=== PATIENT | female | born 2000 | race Caucasian/White ===

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

== ENCOUNTER → 2018-01-09 15:01 | Outpatient (CLI) | payer OTHER, MEDICAID, SELFPAY ==
--- NOTE | 2018-01-09 15:07 | DI.MRI.S_ITS ---
PROCEDURE: MR KNEE RT WO CON INDICATIONS: right knee pain s/p injury while lunging with swelling. Posterior and medial pain TECHNIQUE: Noncontrast sagittal PD fast spin echo and T2 fast spin echo with fat saturation, sagittal 3-D FLASH with fat saturation; coronal T1 spin echo and PD fast spin echo with fat saturation, and axial PD fast spin echo with fat saturation through the knee. COMPARISON: None. FINDINGS: Image quality: Excellent. Menisci: Mild amorphous high T2 signal intensity within the posterior horn medial meniscus is present, without definite articular surface extension. The medial and lateral menisci demonstrate otherwise normal morphology and internal signal. The meniscal root ligaments appear intact. Cruciate ligaments: The anterior and posterior cruciate ligaments appear intact. Medial structures: The medial collateral ligament appears intact. Visualized portions of the pes anserinus tendons appear normal. No abnormal bursal fluid. Lateral structures: The lateral collateral ligament, long and short heads of the biceps femoris tendon appear intact. The popliteus tendon appears normal. Iliotibial band appears normal. Anterior structures: The quadriceps and patellar tendons appear intact. There is mild lateral patellar subluxation. There is high T2 signal intensity within and surrounding the medial patellofemoral ligament. No femoral trochlear dysplasia or ventral trochlear prominence. No edema in the infrapatellar fat pad. Bones and cartilage: No displaced fracture. There is moderate ill-defined T2 signal elevation within the lateral femoral condyle anteriorly and posteriorly. There is moderate ill-defined T2 signal elevation within the inferomedial patella. Full-thickness articular cartilage defect overlies the patellar apex. Joint space: There is a small knee joint effusion. No Marie's cyst. Normal appearing synovial plicae are incidentally noted. IMPRESSION: 1. Findings consistent with sequelae of recent transient lateral patellar dislocation, with kissing contusions in the medial patella and lateral femoral condyle. No displaced fracture. There is an associated articular cartilage defect overlying the patellar apex. Small knee joint effusion. 2. No evidence of meniscal tear nor cruciate ligament tear. Dictated by: Temi Palomo M.D. on 01/09/2018 at 16:17 Approved by: Temi Palomo M.D. on 01/09/2018 at 16:21
== END ==
PROVIDERS: PCP Family Medicine; Visit Provider Family Medicine
DX: S80.02XA Contusion of left knee, initial encounter (principal); M25.561 Pain in right knee; M25.461 Effusion, right knee
CPT/HCPCS: 73721

== ENCOUNTER 2018-02-26 12:32 | Emergency (ER) | payer OTHER, MEDICAID, SELFPAY ==
[2018-02-26 12:59] VITALS: BP 109/73; PULSE 93; RESP 20; TEMP 36.6; O2SAT 99
--- NOTE | 2018-02-26 13:38 | ED.ANXIETY ---
HPI - Anxiety General Chief Complaint: Anxiety Stated Complaint: states panic attack, chest hurts Time Seen by Provider: 02/26/18 13:37 Source: patient Mode of arrival: ambulatory Limitations: no limitations History of Present Illness HPI narrative: This 17-year-old female who has a long history of anxiety and panic attacks comes in today due to recurrent panic attack to. She states that she has had more anxiety recently, felt on edge, foggy, and harder to process and focus. She has intermittent brief chest pains that are typical for her when she gets very anxious. She states that she occasionally takes clonazepam for severe anxiety, not more than a few times per month. She ran out of this a couple of days ago, called her psychiatrist to request a refill, but is a bit late for her follow-up, and states psychiatrist would not refill her medications until she can be seen at the end of the month. She states that this in turn made her more anxious and she was unable to sleep at all last night due to tension, which made her feel worse. She states that she has been on 40 mg of Prozac, tried more in the past but she felt worse on that. She does have times where she is ?super focused?. Symptoms tend to wax and wane. She states that currently, she is feeling better. Not having any chest pain, dyspnea, shakes or other new symptoms now aside from some ongoing bilateral earache which she thinks is due to tension in her jaw muscles. She has not been ill with upper respiratory symptoms or fever. She denies any possibility of Related Data Previous Rx's Medication Instructions Recorded clonazepam 0.5 mg tablet 0.5 mg PO PRN PRN #5 08/28/17 clonazepam 0.5 mg PO .qd PRN #3 tab 02/26/18 fluoxetine 20 mg capsule 40 mg PO DAILY #60 cap 02/26/18 Allergies Allergy/AdvReac Type Severity Reaction Status Date / Time No Known Drug Allergies Allergy Verified 02/23/18 13:24 Review of Systems Review of Systems All systems reviewed & are unremarkable except as noted in HPI and below PFSH Medical History Anxiety (Chronic) Panic attacks (Chronic) Social History Smoking Status: Never smoker Exam Narrative Exam Narrative: GENERAL APPEARANCE: Patient sitting comfortably, in no distress. HEAD: No sinus TTP. EYES: PERRL, EOMI. EARS: Normal auditory canals, TMS intact with normal light reflexes. ORAL CAVITY: Normal oropharynx. THROAT: Clear. NECK/THYROID: Neck supple, full range of motion, no cervical lymphadenopathy. LUNGS: Clear to auscultation bilaterally, no cough on exam. HEART: RRR without murmur, nl S1, S2, no S3 or S4. Initial Vital Signs Initial Vital Signs: Vital Signs Temperature 97.9 F 02/26/18 12:59 Pulse Rate 93 H 02/26/18 12:59 Respiratory Rate 20 02/26/18 12:59 Blood Pressure 109/73 02/26/18 12:59 Pulse Oximetry 99 02/26/18 12:59 Course Additional Information: The patient is not currently having chest pain or other panic attack symptoms, has had persistent anxiety recently. I did prescribe a few clonazepam for her to have on hand since she has taken this occasionally for some time without complications. Her mom is here with her who has similar symptoms and well known to me from my previous practice. Advised to follow up with her psychiatrist, and discussed possibility of other contributors such as soft bipolar disorder given the mood changes that she describes and some history of worsening with SSRIs. She is agreeable and will return if any acute changes Vital Signs - 8 hr 02/26/18 12:59 Temperature 97.9 F Pulse Rate 93 H Respiratory Rate 20 Blood Pressure 109/73 Pulse Oximetry 99 MDM - Anxiety ECG Data Attestation: I personally reviewed and interpreted this ECG as follows: (Normal sinus rhythm with rate 73, normal axis) Discharge Plan Departure Patient Disposition: Home Clinical Impression: Panic attacks Discharge Date/Time: 02/26/18 14:14 Interventions: ED Discharge Assessment Last Done: 02/26/18 14:13 Instructions: Anxiety and Panic Attacks (Alternative Therapy), DI for Anxiety -- Adult Activity Restrictions/Additional Instructions: Please return if you have new or acutely worsening symptoms as we talked about, otherwise I have written a prescription for a few clonazepam for you to have on hand until you can follow up with your PCP or psychiatrist. Please make sure you get refills before you run out of that in the future, as that should help in providing the panic attacks. The since you have had the times where you have more focused and increased anxiety, and other times where you feel foggy, please also discussed with them whether you need to make any changes in your Prozac, or whether there may be other problems that contribute to your anxiety that could be treated. Prescriptions: New clonazepam 0.5 mg tablet 0.5 mg PO .qd PRN (Reason: anxiety/panic attack) Qty: 3 RF: 0 No Action clonazepam 0.5 mg tablet 0.5 mg PO PRN PRN (Reason: anxiety) Qty: 5 RF: 0 fluoxetine 20 mg capsule 40 mg PO DAILY Qty: 60 RF: 0 Referrals: Stella Wilson [Other] Lisset Herrera MD [Primary Care Provider] -
== END 2018-02-26 14:14 | disposition home or self-care (01) ==
PROVIDERS: Emergency Provider Internal Medicine; PCP Family Medicine
DX: F41.0 Panic disorder [episodic paroxysmal anxiety] (principal); R07.89 Other chest pain
CPT/HCPCS: 93005; 99282; 99283

== ENCOUNTER 2018-04-12 15:31 | Emergency (ER) | payer OTHER, MEDICAID, SELFPAY ==
[2018-04-12 15:34] VITALS: BMI 28.8
[2018-04-12 15:36] VITALS: BP 128/77; PULSE 93; RESP 16; O2SAT 98; BMI 28.8
--- NOTE | 2018-04-12 16:05 | PC.NURSE ---
inserted soft nasal packing to right nostril and reapplied nasal clamp.
== END 2018-04-12 16:46 | disposition left against medical advice (07) ==
PROVIDERS: PCP Family Medicine
DX: R04.0 Epistaxis (principal)
CPT/HCPCS: 99281

== ENCOUNTER 2018-04-13 21:25 | Emergency (ER) | payer OTHER, MEDICAID, SELFPAY ==
[2018-04-13 21:33] VITALS: BP 122/70; PULSE 102; RESP 18; TEMP 36.8; O2SAT 99; BMI 28.8
--- NOTE | 2018-04-13 22:06 | ED_ITS ---
HPI - Epistaxis General Chief complaint: Nasal Problem Stated complaint: bloody nose Time Seen by Provider: 04/13/18 21:39 Source: patient Mode of arrival: ambulatory Limitations: no limitations History of Present Illness HPI Narrative: 17-year-old female here for evaluation of a nose bleed. She also states that for the past several weeks she has become very ?lightheaded. She does bruise easily. No trauma to her nose. Does have heavy menstrual cycles. Feels like her head is full water and becoming lightheaded. She also states that she became nauseous after the nosebleed. Coughed up some ?clots? Related Data Previous Rx's Medication Instructions Recorded clonazepam 0.5 mg tablet 0.5 mg PO DAILY PRN #10 tab 04/02/18 fluoxetine 20 mg capsule 40 mg PO DAILY #60 cap 04/02/18 Allergies Allergy/AdvReac Type Severity Reaction Status Date / Time No Known Drug Allergies Allergy Verified 04/12/18 15:34 Review of Systems Constitutional Denies fever(s) and Denies headache(s) ENT Ears, Nose, Mouth, and Throat: Denies dental pain, Denies vertigo, Reports dizziness, Denies facial pain, Denies headache(s), Reports epistaxis, Denies mouth lesions, Denies neck mass, Reports sinus pain, Reports sinus pressure, Denies sore throat, Denies throat swelling and Denies tongue swelling Cardiovascular Denies chest pain and Denies dyspnea Respiratory Denies dyspnea Gastrointestinal Gastrointestinal: Denies abdominal pain, Denies nausea and Denies vomiting Genitourinary Denies vaginal discharge Comments: Heavy menstrual cycles Musculoskeletal Denies myalgias and Denies arthralgias Integumentary/Breasts Denies lesions and Denies rash Neurologic Denies vertigo, Reports dizziness and Denies headache(s) Hematologic/Lymphatic Denies easy bleeding and Reports easy bruising Allergic/Immunologic Denies throat swelling and Denies tongue swelling PFSH Medical History Anxiety (Chronic) Panic attacks (Chronic) Social History Smoking Status: Never smoker alcohol intake: never substance use type: does not use Exam Initial Vital Signs Initial Vital Signs: Vital Signs Temperature 98.3 F 04/13/18 21:33 Pulse Rate 102 H 04/13/18 21:33 Respiratory Rate 18 04/13/18 21:33 Blood Pressure 122/70 04/13/18 21:33 Pulse Oximetry 99 04/13/18 21:33 Const General: cooperative, healthy appearing, comfortable, well developed, well groomed and No acute distress Orientation: alert, awake and oriented x3 HENMT Head: normal to inspection Ears: other (Bilateral tympanic membranes bulging without erythema) Nose: other (Red area in the right anterior nasal septum. No septal hematoma.) Resp Effort & Inspection: normal respiratory effort Cardio Rate: regular rate Rhythm: regular rhythm GI Inspection: non-distended Palpation: soft, No firm and No tender Skin Lesions: no lesions Rashes: no rashes Neuro General: alert, awake and oriented x3 Extrem General: normal to inspection and capillary refill normal Psych Appearance: grossly normal and well kempt Course Orders Ordered: ED Orders 04/13/18 22:18 Complete Blood Count AUTO DIFF Stat Vital Signs - 8 hr 04/13/18 21:33 Temperature 98.3 F Pulse Rate 102 H Respiratory Rate 18 Blood Pressure 122/70 Pulse Oximetry 99 MDM - Epistaxis Lab Data Attestation: I reviewed the patient's lab results. Result diagrams: 04/13/18 22:18 Lab Results 04/13/18 Range/Units 22:18 WBC 8.6 (4.5-11.0) X10^3/uL RBC 4.53 (4.0-5.2) X10^6/uL Hgb 13.6 (12.0-16.0) g/dL Hct 40.4 (36-46) % MCV 89.3 (80-100) fL MCH 30.1 (26-34) PG MCHC 33.7 (30-36) % RDW 12.3 (11.6-14.8) % Plt Count 274 (150-400) X10^3/uL Neut % (Auto) 58.7 (50-75) % Lymph % (Auto) 30.1 (25-40) % [place] % (Auto) 7.9 (3-14) % Eos % (Auto) 2.5 (2-4) % Baso % (Auto) 0.8 (0-2) % Neut # (Auto) 5100 (2479-5406) /uL MDM Narrative Medical decision making narrative: No active bleeding. Platelets unremarkable. Not anemic. Does have signs of upper respiratory infection. We did discuss decongestants. We discussed things that she can do at home for if her nosebleed returns. We discussed return precautions. She expressed understanding and agreement with plan. Discharge Plan Departure Patient Disposition: Home Clinical Impression: Epistaxis, Nasal sinus congestion Instructions: Nosebleeds (Alternative Therapy), DI for Nosebleed, DI for Nasal Congestion Activity Restrictions/Additional Instructions: Recommend that you take a decongestant such as Claritin like we discussed. He could also use the Vaseline around the outside of her nose like we discussed. Return to the emergency department for any new or worsening symptoms Prescriptions: No Action fluoxetine 20 mg capsule 40 mg PO DAILY Qty: 60 RF: 0 clonazepam 0.5 mg tablet 0.5 mg PO DAILY PRN (Reason: anxiety/panic attack) Qty: 10 RF: 0
--- NOTE | 2018-04-13 22:10 | PC.NURSE ---
R nasal turbinate edematous. No active nose bleeding noted. c/o congestion in ears, R>L, with nasal congestion
[2018-04-13 22:27] LABS: Add Manual Diff / Slide Review NO; Basophils Percent Auto 0.8 % (0-2); Eosinophils Percent Auto 2.5 % (2-4); Hematocrit 40.4 % (36-46); Hemoglobin 13.6 g/dL (12.0-16.0); Lymphocytes Percent Auto 30.1 % (25-40); Mean Corpuscular HGB Conc 33.7 % (30-36); Mean Corpuscular Hemoglobin 30.1 PG (26-34); Mean Corpuscular Volume 89.3 fL (80-100); Monocytes Percent Auto 7.9 % (3-14); Neutrophils Absolute Auto 5100 /uL (1500-7000); Neutrophils Percent Auto 58.7 % (50-75); Platelet Count 274 X10^3/uL (150-400); Red Blood Cell Count 4.53 X10^6/uL (4.0-5.2); Red Cell Distribution Width 12.3 % (11.6-14.8); White Blood Cell Count 8.6 X10^3/uL (4.5-11.0)
[2018-04-13 23:09] VITALS: BP 106/71; PULSE 89; RESP 18; O2SAT 100
== END 2018-04-13 23:00 | disposition home or self-care (01) ==
PROVIDERS: Emergency Provider Emergency Medicine; PCP Family Medicine
DX: R04.0 Epistaxis (principal); R09.81 Nasal congestion
CPT/HCPCS: 36415; 85025; 99282; 99283

== ENCOUNTER 2018-05-04 11:44 | Emergency (ER) | payer OTHER, MEDICAID, SELFPAY ==
[2018-05-04 11:45] VITALS: BP 119/65; PULSE 79; RESP 20; TEMP 37; O2SAT 100
--- NOTE | 2018-05-04 12:04 | PC.NURSE ---
Assumed care of pt at bed 11, pt c/o jolting discomfort in the chest, feeling racing heart which wakes her up from sleep with dyspnea, dizziness. She has hx of anxiety and takes Prozac and Clonazepam PRN and it feels different. She is somewhat able to recreate the jolting discomfort by press on the chest. Patient reports not feeling well yesterday way with feeling weak, dizziness, sob.
--- NOTE | 2018-05-04 12:07 | ED_ITS ---
HPI - Chest Pain <Rose Millard PA-C - Last Filed: 05/04/18 12:57> General Chief Complaint: Chest Pain Stated Complaint: Chest pain/anxiety Time Seen by Provider: 05/04/18 12:05 Source: patient Mode of arrival: ambulatory Limitations: no limitations History of Present Illness HPI narrative: This 18-year-old female comes in due to chest pressure and discomfort. She states that she awoke at 4:00 a.m. with this, noticed it was worse with arm and neck movement. She states that this was brief. She states that she was able to fall back asleep, but awoke a couple more times with similar symptoms and has had intermittently throughout the day. She describes this as chest pressure in the left side, it is freeze, alleviated with position change. She saw her chiropractor and had adjustment done but no change. She describes some minimal air hunger with symptoms, but denies any ysabel dyspnea, no wheeze. She denies any nausea or vomiting. She denies any lightheadedness. She has not had any cough or fever recently. No pain or swelling in her legs. She states that she has chronic neck and back tightness strain for which she sees chiropractor and sometimes PT and notes that she tends to sleep with her left arm up. She denies any new exercises or trauma. She states that she has had more reflux and belching recently. Related Data Home Medications Medication Instructions Recorded Confirmed clonazepam 0.5 mg PO BID PRN 05/04/18 05/04/18 Previous Rx's Medication Instructions Recorded fluoxetine 20 mg capsule 40 mg PO DAILY #60 cap 05/04/18 meloxicam 15 mg PO DAILY #14 tab 05/04/18 ranitidine HCl 300 mg PO DAILY #20 tab 05/04/18 Allergies Allergy/AdvReac Type Severity Reaction Status Date / Time No Known Drug Allergies Allergy Verified 04/12/18 15:34 Review of Systems <LISA Calix Last Filed: 05/04/18 12:57> Review of Systems ROS Unobtainable: All systems reviewed & are unremarkable except as noted in HPI and below Exam <LISA Calix Last Filed: 05/04/18 12:57> Initial Vital Signs Initial Vital Signs: Vital Signs Temperature 98.6 F 05/04/18 11:45 Pulse Rate 79 05/04/18 11:45 Respiratory Rate 20 05/04/18 11:45 Blood Pressure 119/65 05/04/18 11:45 Pulse Oximetry 100 05/04/18 11:45 GENERAL APPEARANCE: Patient sitting comfortably, in no distress. NECK/THYROID: Neck supple LUNGS: Clear to auscultation bilaterally. CHEST: Tender the over the left inferior ribs mainly 9/10 at the sternal border , otherwise mildly tender over the mid to inferior anterior ribs HEART: Regular rate and rhythm without murmur, normal S1, S2, no S3 or S4. ABDOMEN: Soft, NT, ND, + BS x 4 quadrants EXTREMITIES: No cyanosis. No calf tenderness NEUROLOGIC: Alert and oriented, normal speech, gait and coordination. DERMATOLOGIC: No exanthem MUSCULOSKELETAL: No point tenderness over the cervical or thoracic spine, mild generalized tenderness over the cervical and thoracic musculature. Full range of motion of the neck and extremities. Chest tenderness is elicited briefly on exam and resolves with position change <DO Mikael Maya Last Filed: 05/05/18 07:45> Initial Vital Signs Initial Vital Signs: Vital Signs Temperature 98.6 F 05/04/18 11:45 Pulse Rate 79 05/04/18 11:45 Respiratory Rate 20 05/04/18 11:45 Blood Pressure 119/65 05/04/18 11:45 Pulse Oximetry 100 05/04/18 11:45 Course <Rose Millard PA-C - Last Filed: 05/04/18 12:57> Orders Ordered: ED Orders 05/04/18 11:54 EKG-12 Lead Stat Vital Signs - 8 hr 05/04/18 11:45 05/04/18 12:37 Temperature 98.6 F Pulse Rate 79 87 Respiratory Rate 20 20 Blood Pressure 119/65 Blood Pressure [Right Arm] 107/59 L Pulse Oximetry 100 99 <DO Mikael Maya Last Filed: 05/05/18 07:45> Orders Ordered: ED Orders 05/04/18 11:54 EKG-12 Lead Stat Vital Signs - 8 hr 05/04/18 11:45 05/04/18 12:37 Temperature 98.6 F Pulse Rate 79 87 Respiratory Rate 20 20 Blood Pressure 119/65 Blood Pressure [Right Arm] 107/59 L Pulse Oximetry 100 99 MDM - Chest Pain <Rose Millard PA-C - Last Filed: 05/04/18 12:57> ECG Data Attestation: I personally reviewed and interpreted this ECG as follows: (NSR, rate 84, normal axis, no acute changes) Prior ECG tracings: available for review <Hilary Martinez DO - Last Filed: 05/05/18 07:45> ECG Data Attestation: I personally reviewed and interpreted this ECG as follows: Prior ECG tracings: available for review Interpretation: Normal sinus rhythm rate [address] changes SD interval 164 no T- wave inversions similar to previous EKG Discharge Plan Departure Patient Disposition: Home Clinical Impression: Atypical chest pain, Chondrocostal junction syndrome Discharge Date/Time: 05/04/18 13:01 Interventions: ED Discharge Assessment Last Done: 05/04/18 13:01 Instructions: DI for Costochondritis Activity Restrictions/Additional Instructions: You appear to have pain where the left lower ribs and breast bone connect. I have prescribed a once daily anti-inflammatory/pain medicine for you that may upset your stomach less than ibuprofen and help your pain. Please start this today. I also prescribed an acid civil engineer land development medicine (prescription strength Zantac ). Please start this once daily as well so that you can review your progress with your PCP when you follow-up next week. Discussed whether it may be helpful to start physical therapy for your rib pain if it continues. Return as we talked about if you have new or acutely worsening or new symptoms that you are concerned about in the interim. Prescriptions: New ranitidine HCl 300 mg tablet 300 mg PO DAILY Qty: 20 RF: 0 meloxicam 15 mg tablet 15 mg PO DAILY Qty: 14 RF: 0 No Action fluoxetine 20 mg capsule 40 mg PO DAILY Qty: 60 RF: 0 clonazepam 0.5 mg tablet 0.5 mg PO BID PRN (Reason: Anxiety) RF: 0 Referrals: Lisset Herrera MD [Primary Care Provider] - <Hilary Martinez DO - Last Filed: 05/05/18 07:45> Cosign ED Attending Karissa Attestation: I was immediately available in the department for consultation. Documentation has been reviewed. I agree with assessment and plan.
[2018-05-04 12:37] VITALS: BP 107/59; PULSE 87; RESP 20; O2SAT 99
== END 2018-05-04 13:01 | disposition home or self-care (01) ==
PROVIDERS: Emergency Provider Internal Medicine; PCP Family Medicine
DX: R07.89 Other chest pain (principal); M94.0 Chondrocostal junction syndrome [Tietze]
CPT/HCPCS: 93005; 93010; 93041; 99283

== ENCOUNTER → 2018-05-09 16:00 | Outpatient (CLI) | payer OTHER, MEDICAID, SELFPAY ==
[2018-05-09 16:20] LABS: Add Manual Diff / Slide Review NO; Basophils Absolute Auto 0 /uL (0-100); Basophils Percent Auto 0.6 % (0-2); Eosinophils Absolute Auto 200 /uL (0-450); Eosinophils Percent Auto 3.2 % (2-4); Hematocrit 41.4 % (36-46); Lymphocytes Absolute Auto 1900 /uL (1100-4500); Mean Corpuscular HGB Conc 33.7 % (30-36); Mean Corpuscular Hemoglobin 30.2 PG (26-34); Mean Corpuscular Volume 89.7 fL (80-100); Monocytes Absolute Auto 400 /uL (0-900); Monocytes Percent Auto 4.8 % (3-14); Neutrophils Absolute Auto 5000 /uL (1500-7000); Neutrophils Percent Auto 66.4 % (50-75); Platelet Count 243 X10^3/uL (150-400); Red Blood Cell Count 4.62 X10^6/uL (4.0-5.2); Red Cell Distribution Width 12.3 % (11.6-14.8); White Blood Cell Count 7.6 X10^3/uL (4.5-11.0)
[2018-05-09 16:58] LABS: Vitamin D 25 Hydroxy (D3) 29.2 ng/mL (30.0-100.0)
[2018-05-09 17:08] LABS: TSH w/ Reflex to FT4 1.02 uIU/mL (0.47-4.68)
== END ==
PROVIDERS: PCP Family Medicine; Visit Provider Family Medicine
DX: R53.83 Other fatigue (principal)
CPT/HCPCS: 36415; 82306; 84443; 85025

== ENCOUNTER → 2018-06-20 15:56 | Outpatient (CLI) | payer OTHER, MEDICAID, SELFPAY | PROVIDERS: PCP Family Medicine; Visit Provider Family Medicine | DX: N89.8 Other specified noninflammatory disorders of vagina (principal) | CPT/HCPCS: 87070; 87205 ==

== ENCOUNTER → 2018-08-08 19:07 | Outpatient (CLI) | payer OTHER, MEDICAID, SELFPAY ==
[2018-08-08 19:34] LABS: Monotest Positive (Negative)
== END ==
PROVIDERS: PCP Family Medicine; Visit Provider Physician Assistant
DX: J02.9 Acute pharyngitis, unspecified (principal); R53.83 Other fatigue
CPT/HCPCS: 86318; 87070

== ENCOUNTER 2018-10-22 23:32 | Emergency (ER) | payer OTHER, MEDICAID, SELFPAY ==
[2018-10-22 23:39] VITALS: BP 121/73; PULSE 104; RESP 18; TEMP 36.8; O2SAT 98; BMI 29.7
--- NOTE | 2018-10-22 23:42 | ED_ITS ---
HPI - General Adult General Chief complaint: Arrhythmia/Palpitations Stated complaint: RACING HEART TIGHTNESS IN CHEST Time Seen by Provider: 10/22/18 23:40 Source: patient Mode of arrival: ambulatory Limitations: no limitations History of Present Illness HPI narrative: Patient is a 18-year-old female. She states she has a history of anxiety but this felt somewhat different than her prior anxiety issues. States she has been having palpitations and tightness in her chest and palpitations up into her neck. She states she was having the symptoms of the time my evaluation. Did not take her anxiety medicines prior to coming in Related Data Previous Rx's Medication Instructions Recorded clonazepam 0.5 mg tablet 0.5 mg PO DAILY PRN #30 tab 09/25/18 sertraline 100 mg tablet 100 mg PO DAILY #30 tab 10/22/18 Allergies Allergy/AdvReac Type Severity Reaction Status Date / Time No Known Drug Allergies Allergy Verified 10/22/18 09:14 Review of Systems Constitutional Denies fever(s) and Denies headache(s) ENT Ears, Nose, Mouth, and Throat: Denies headache(s) Cardiovascular Denies chest pain, Reports rapid heart rate, Reports palpitations and Denies dyspnea Respiratory Denies cough and Denies dyspnea Gastrointestinal Gastrointestinal: Denies abdominal pain Genitourinary Denies dysuria Musculoskeletal Denies myalgias and Denies arthralgias Integumentary/Breasts Denies rash Neurologic Denies behavioral changes and Denies headache(s) Psychiatric Denies behavioral changes Comments: Anxiety Endocrine Reports palpitations Hematologic/Lymphatic Denies easy bruising [facility] Medical History Anxiety (Chronic) Chronic neck and back pain (Chronic) Panic attacks (Chronic) Surgical History (Updated 05/04/18 @ 12:06 by Rose Millard PA-C) No pertinent past surgical history (Chronic) Family History (Updated 05/04/18 @ 12:06 by Rose Millard PA-C) Other Family history non-contributory Social History Smoking Status: Never smoker alcohol intake: never substance use type: does not use Social History Smoking Status: Never smoker alcohol intake: never substance use type: does not use Exam Initial Vital Signs Initial Vital Signs: Vital Signs Temperature 98.2 F 10/22/18 23:39 Pulse Rate 104 H 10/22/18 23:39 Respiratory Rate 18 10/22/18 23:39 Blood Pressure 121/73 10/22/18 23:39 Pulse Oximetry 98 10/22/18 23:39 Const General: cooperative, well developed, well groomed and No acute distress Orientation: alert, awake and oriented x3 HENMT Head: normal to inspection and normocephalic Resp Effort & Inspection: normal respiratory effort Auscultation: clear to auscultation bilaterally Cardio Rate: regular rate Rhythm: regular rhythm Pulses: radial pulses present GI Inspection: non-distended Palpation: soft Skin Lesions: no lesions Rashes: no rashes Neuro General: alert and awake Cognition: normal cognition Speech: speech normal Motor: muscle tone normal throughout Extrem General: normal to inspection and capillary refill normal Psych Appearance: grossly normal and well kempt Course Orders Ordered: ED Orders 10/22/18 23:41 EKG-12 Lead Stat Discontinued Medications Lorazepam (Ativan) 1 mg PO NOW ONE Stop: 10/22/18 23:55 Last Admin: 10/23/18 00:01 Dose: 1 mg Vital Signs - 8 hr 10/22/18 23:39 10/23/18 00:21 Temperature 98.2 F Pulse Rate 104 H 97 H Respiratory Rate 18 18 Blood Pressure 121/73 Blood Pressure [Right Arm] 111/70 Pulse Oximetry 98 98 Medical Decision Making ECG Data Attestation: I personally reviewed and interpreted this ECG as follows: Prior ECG tracings: not available for review Interpretation: Sinus rhythm Ventricular rate of 94 First degree AV block as needed oval 2-4 milliseconds Normal QRS Normal QTC No ST T wave changes MDM Narrative Medical decision making narrative: Patient was having symptoms the time my evaluation where her heart rate was sinus rhythm. Give her Ativan here in the emergency department she does state that this helped her symptoms somewhat. I suspect that the symptoms were caused by anxiety. She was given return precautions and follow-up instructions. She expressed understanding and agreement plan. Discharge Plan Departure Patient Disposition: Home Clinical Impression: Palpitations, Anxiety Discharge Date/Time: 10/23/18 00:30 Interventions: ED Discharge Assessment Last Done: 10/23/18 00:29 Instructions: DI for Palpitations Activity Restrictions/Additional Instructions: Continue all of your medications as directed. Return to the emergency department for any new or worsening symptoms. Contact your primary care provider for a follow-up. Prescriptions: No Action sertraline 100 mg tablet 100 mg PO DAILY Qty: 30 RF: 2 clonazepam 0.5 mg tablet 0.5 mg PO DAILY PRN (Reason: Anxiety) Qty: 30 RF: 0 Referrals: Lisset Herrera MD [Primary Care Provider] -
[2018-10-23] MEDS: LORazepam 1 MG TABLET PO (00:01)
[2018-10-23 00:21] VITALS: BP 111/70; PULSE 97; RESP 18; O2SAT 98
== END 2018-10-23 00:30 | disposition home or self-care (01) ==
PROVIDERS: Emergency Provider Emergency Medicine; PCP Family Medicine
DX: R00.2 Palpitations (principal); F41.9 Anxiety disorder, unspecified
CPT/HCPCS: 93005; 93010; 99282; 99283

== ENCOUNTER → 2019-06-07 12:03 | Outpatient (ROUT) | payer OTHER, MEDICAID, SELFPAY | PROVIDERS: PCP Family Medicine; Visit Provider Obstetrics & Gynecology | DX: N94.89 Other specified conditions associated with female genital organs and menstrual cycle (principal) | CPT/HCPCS: 87480; 87510; 87660 ==

== ENCOUNTER → 2019-11-22 13:43 | Outpatient (CLI) | payer OTHER, MEDICAID, SELFPAY ==
[2019-11-24 04:11] LABS: COVID19 Sendout Not Detected (Not Detected)
== END ==
PROVIDERS: PCP Family Medicine; Visit Provider Physician Assistant
DX: R05 Cough (principal); J02.9 Acute pharyngitis, unspecified; Z11.59 Encounter for screening for other viral diseases
CPT/HCPCS: 87070; 87635

== ENCOUNTER 2019-12-29 16:36 | Emergency (ER) | payer OTHER, MEDICAID, SELFPAY ==
[2019-12-29 16:40] VITALS: BP 124/66; PULSE 127; RESP 18; TEMP 37; O2SAT 99; BMI 31.3
--- NOTE | 2019-12-29 17:12 | ED.SYNCOPE ---
HPI - Syncope General Chief Complaint: Syncope Stated Complaint: Dizzy/Fell outside/loss of memory Time Seen by Provider: 12/29/19 17:00 Source: patient Mode of arrival: Ambulatory Limitations: no limitations History of Present Illness HPI narrative: Patient is a 19-year-old female who presents after syncopal episode. She said she was face timing with a friend and typing on the computer for about an hour. She suddenly got blurry vision and was not able to concentrate she could not see straight she remembers walking outside where she woke up on the ground and passed out. She denies having any chest pain or dizziness. She was able to drink water she denies any nausea or vomiting. She is not on any anti-platelet or anticoagulation medication. She has no focal deficits at this time. It took her a while to remember the events that they seem to have come to her. Her vision has completely resolved. She states she has not eaten anything all day and has had nothing to drink. MD complaint: loss of consciousness Related Data Previous Rx's Medication Instructions Recorded clonazepam 0.5 mg tablet 0.5 mg PO DAILY PRN #30 tab 09/25/18 sertraline 100 mg tablet 100 mg PO DAILY #30 tab 10/22/18 Allergies Allergy/AdvReac Type Severity Reaction Status Date / Time No Known Drug Allergies Allergy Verified 11/22/19 13:41 Review of Systems Review of Systems Narrative: GENERAL: Denies chills, fatigue, malaise, fever, sweats, travel HEENT: Denies sinus pain, ear pain, sore throat, difficulty swallowing, neck pain RESPIRATORY: Denies dyspnea, cough, wheezing, hemoptysis, sputum. CARDIOVASCULAR: Denies chest pain, palpitations, orthopnea, edema GASTROINTESTINAL: Denies nausea, vomiting, abdominal pain, diarrhea, constipation, melena. : Denies dysuria, frequency, incontinence, hematuria, urinary retention, flank pain. MUSCULOSKELETAL: Denies weakness, joint pain, or bony pain SKIN: No rash, no erythema, no pruritus NEUROLOGIC: See HPI PSYCHIATRIC: No concerning psychosocial issues. 12 point review of systems is negative except for those stated above and HPI Patient History Medical History Anxiety (Chronic) Chronic neck and back pain (Chronic) Panic attacks (Chronic) Surgical History No pertinent past surgical history (Chronic) Family History Other Family history non-contributory Social History Smoking Status: Never smoker alcohol intake: never substance use type: does not use Smoking Status: Never smoker alcohol intake frequency: 0-2 drinks per day Substance Use Type: does not use Exam Initial Vital Signs Initial Vital Signs: Vital Signs Temperature 98.6 F 12/29/19 16:40 Pulse Rate 127 H 12/29/19 16:40 Respiratory Rate 18 12/29/19 16:40 Blood Pressure 124/66 12/29/19 16:40 Pulse Oximetry 99 12/29/19 16:40 GENERAL: Very anxious Well-appearing, well-nourished and in no acute distress. HEENT: Head atraumatic,EOMI, pupils reactive, face symmetric, moist mucous membranes CARDIOVASCULAR: Regular rate and rhythm without murmurs, rubs or gallops. RESPIRATORY: Breath sounds equal bilaterally, no wheezes rales or rhonchi. ABDOMEN: Soft, nontender. Normoactive bowel sounds all 4 quadrants. No guarding or rebound. EXTREMITIES: Normal range of motion, no clubbing or edema. Neurovascularly intact NEUROLOGICAL: Alert and oriented x4.Normal gait and speech. Cranial nerves II through XII grossly intact. Good [id number], good [id number], strength equal bilaterally, no dysarthria or aphasia, sensation in tact to soft touch bilaterally, no visual changes, no facial droop SKIN: Warm, dry, no laceration, no petechiae, no rashes or lesions. Course Orders Ordered: ED Orders 12/29/19 16:58 EKG-12 Lead Stat 12/29/19 17:37 Complete Blood Count AUTO DIFF Stat Comprehensive Metabolic Panel Stat Discontinued Medications Sodium Chloride (Normal Saline 0.9%) 1,000 mls @ 1,000 mls/hr IV BOLUS ONE Stop: 12/29/19 18:21 Last Admin: 12/29/19 17:40 Dose: 1,000 mls/hr Documented by: ZORAN Vital Signs Vital signs: Vital Signs - 8 hr 12/29/19 16:40 12/29/19 18:03 12/29/19 18:30 Temperature 98.6 F Pulse Rate 127 H 98 H 88 Respiratory Rate 18 Blood Pressure 124/66 Pulse Oximetry 99 99 98 MDM - Syncope Lab Data Attestation: I reviewed the patient's lab results. Result diagrams: 12/29/19 17:37 12/29/19 17:37 Labs: Lab Results 12/29/19 12/29/19 Range/Units 17:37 17:37 WBC 7.8 (4.5-11.0) X10^3/uL RBC 4.69 (4.0-5.2) X10^6/uL Hgb 14.1 (12.0-16.0) g/dL Hct 41.2 (36-46) % MCV 87.9 (80-100) fL MCH 30.1 (26-34) PG MCHC 34.2 (30-36) % RDW 12.7 (11.6-14.8) % Plt Count 210 (150-400) X10^3/uL Neut % (Auto) 66.8 (50-75) % Lymph % (Auto) 23.8 L (25-40) % [place] % (Auto) 6.2 (3-14) % Eos % (Auto) 2.7 (2-4) % Baso % (Auto) 0.5 (0-2) % Neut # (Auto) 5200 (5825-9118) /uL Lymph # (Auto) 1900 (3296-0633) /uL [place] # (Auto) 500 (0-900) /uL Eos # (Auto) 200 (0-450) /uL Baso # (Auto) 0 (0-100) /uL Sodium 137 (137-145) mmol/L Potassium 3.8 (3.4-5.1) mmol/L Chloride 104 (98-107) mmol/L Carbon Dioxide 25 (22-32) mmol/L BUN 17 (7-17) mg/dL Creatinine 0.66 (0.52-1.04) mg/dL Estimated GFR > 60.0 (>60) mL/min BUN/Creatinine Ratio 25.8 H (6-22) Glucose 95 (70-100) mg/dL Calcium 8.9 (8.4-10.2) mg/dL Total Bilirubin 0.4 (0.2-1.3) mg/dL AST 26 (14-36) IU/L ALT 17 (<35) IU/L Alkaline Phosphatase 48 (38-126) U/L Total Protein 7.7 (6.3-8.2) g/dL Albumin 4.6 (3.5-5.0) g/dL Globulin 3.1 (1.7-4.1) g/dL Albumin/Globulin Ratio 1.5 (1.0-2.8) ECG Data Attestation: I personally reviewed and interpreted this ECG as follows: Prior ECG tracings: available for review Interpretation: Sinus tachycardia rate 112 p.r. interval 176 QRS 96 QTC 466, are no ST changes MDM Narrative Medical decision making narrative: Patient likely had a syncopal episode secondary to trifecta including low glucose, dehydration and possible ocular migraine. At this time she is quite anxious she has no focal deficits blood work is overall reassuring. She is feeling better now that she is in the emergency department. She does not quite remember all of the events which is to be expected after syncopal episode. She overall feels ready and able to go home. Discharge Plan Departure Patient Disposition: Home Clinical Impression: Ocular migraine Syncope Qualifiers: Syncope type: vasovagal syncope Qualified Code(s): R55 - Syncope and collapse Instructions: DI for Syncope in Adults (Fainting) Activity Restrictions/Additional Instructions: *You have been diagnosed with syncopal episode likely due to low sugar, dehydration and possible ocular migraine *What to do: Recommend eating small frequent meals throughout the day and drinking fluids *Continue to take medications as directed *Follow up with your primary care provider in 2-3 days *Return to ER if you should have recurrent episode of passing out, vision changes, persistent headache despite Tylenol or ibuprofen, persistent vomiting or any new, worsening or concerning symptoms Prescriptions: No Action sertraline 100 mg tablet 100 mg PO DAILY Qty: 30 RF: 2 clonazepam 0.5 mg tablet 0.5 mg PO DAILY PRN (Reason: Anxiety) Qty: 30 RF: 0 Referrals: Lisset Herrera MD [Primary Care Provider] -
[2019-12-29] MEDS: SODIUM CHLORIDE 0.9% 1,000 ML 1000 ML IV (17:40)
[2019-12-29 17:46] LABS: Add Manual Diff / Slide Review NO; Basophils Absolute Auto 0 /uL (0-100); Basophils Percent Auto 0.5 % (0-2); Eosinophils Absolute Auto 200 /uL (0-450); Eosinophils Percent Auto 2.7 % (2-4); Hematocrit 41.2 % (36-46); Hemoglobin 14.1 g/dL (12.0-16.0); Lymphocytes Absolute Auto 1900 /uL (1100-4500); Lymphocytes Percent Auto 23.8 % (25-40); Mean Corpuscular HGB Conc 34.2 % (30-36); Mean Corpuscular Hemoglobin 30.1 PG (26-34); Mean Corpuscular Volume 87.9 fL (80-100); Monocytes Absolute Auto 500 /uL (0-900); Monocytes Percent Auto 6.2 % (3-14); Neutrophils Absolute Auto 5200 /uL (1500-7000); Neutrophils Percent Auto 66.8 % (50-75); Platelet Count 210 X10^3/uL (150-400); Red Blood Cell Count 4.69 X10^6/uL (4.0-5.2); Red Cell Distribution Width 12.7 % (11.6-14.8); White Blood Cell Count 7.8 X10^3/uL (4.5-11.0)
[2019-12-29 17:56] LABS: Alanine Aminotransferase 17 IU/L (<35); Albumin 4.6 g/dL (3.5-5.0); Albumin Globulin Ratio 1.5 (1.0-2.8); Alkaline Phosphatase 48 U/L (38-126); Aspartate Aminotransferase 26 IU/L (14-36); BUN Creatinine Ratio 25.8 (6-22); Bilirubin Total 0.4 mg/dL (0.2-1.3); Blood Urea Nitrogen 17 mg/dL (7-17); Calcium 8.9 mg/dL (8.4-10.2); Carbon Dioxide 25 mmol/L (22-32); Chloride 104 mmol/L (98-107); Estimated Glomerular Filt Rate > 60.0 mL/min (>60); Globulin 3.1 g/dL (1.7-4.1); Glucose 95 mg/dL (70-100); HEMOLYSIS < 15 (0-50); Potassium 3.8 mmol/L (3.4-5.1); Sodium 137 mmol/L (137-145); Total Protein 7.7 g/dL (6.3-8.2)
[2019-12-29 18:03] VITALS: PULSE 98; O2SAT 99
[2019-12-29 18:30] VITALS: PULSE 88; O2SAT 98
[2019-12-29 18:45] VITALS: BP 125/75
== END 2019-12-29 18:50 | disposition home or self-care (01) ==
PROVIDERS: Emergency Provider Emergency Medicine; PCP Family Medicine
DX: G43.109 Migraine with aura, not intractable, without status migrainosus (principal); R55 Syncope and collapse; H53.8 Other visual disturbances
CPT/HCPCS: 36415; 80053; 85025; 93005; 96360; 99284

== ENCOUNTER → 2020-01-20 14:23 | Outpatient (CLI) | payer OTHER, MEDICAID, SELFPAY ==
[2020-01-20 14:31] LABS: Bacteria Urine None Seen; RBC Urine None Seen (0-5/HPF); WBC Urine None Seen (0-5/HPF)
[2020-01-20 14:49] LABS: Appearance Urine UA CLEAR; Bilirubin Urine UA NEGATIVE (NEGATIVE); Color Urine UA YELLOW; Glucose Urine UA NEGATIVE (Negative); Ketones Urine UA NEGATIVE (NEGATIVE); Leukocyte Esterase Urine UA NEGATIVE (NEGATIVE); Nitrite Urine UA NEGATIVE (Negative); Occult Blood Urine UA NEGATIVE (Negative); Protein Urine UA NEGATIVE (Negative); Specific Gravity Urine UA 1.025 (1.000-1.035); Urobilinogen Urine UA 0.2 E.U./dL (0.2)
[2020-01-20 14:56] LABS: pH Urine UA 5.5 (4.5-8.0)
[2020-01-20 14:58] LABS: Culture Indicated Urine Cult Not Indicated; Mucus Urine 2+ (Negative); Squamous Epithelial Cell Urine 5-10 /HPF (0-5/HPF)
== END ==
PROVIDERS: PCP Family Medicine; Referring Provider Family Medicine; Visit Provider Family Medicine
DX: R30.0 Dysuria (principal); R35.0 Frequency of micturition; R39.15 Urgency of urination
CPT/HCPCS: 81001

== ENCOUNTER → 2020-03-05 09:06 | Outpatient (CLI) | payer OTHER, MEDICAID, SELFPAY ==
[2020-03-05 10:14] LABS: Influenza A - CEPHEID Flu A NEGATIVE (NEGATIVE); Influenza B - CEPHEID Flu B NEGATIVE (NEGATIVE)
[2020-03-05 11:51] LABS: COVID19 -Nasal RAPID Negative (Negative)
== END ==
PROVIDERS: PCP Family Medicine; Visit Provider Nurse Practitioner
DX: Z11.59 Encounter for screening for other viral diseases (principal); R68.89 Other general symptoms and signs
CPT/HCPCS: 87502; 87635

== ENCOUNTER → 2020-07-17 11:32 | Outpatient (CLI) | payer OTHER, MEDICAID, SELFPAY ==
[2020-07-17 12:04] LABS: COVID19 -Nasal RAPID Negative (Negative)
== END ==
PROVIDERS: PCP Family Medicine; Visit Provider Physician Assistant
DX: Z20.822 Contact with and (suspected) exposure to COVID-19 (principal)
CPT/HCPCS: 87635

== ENCOUNTER 2023-03-12 13:18 | Emergency (ER) | payer OTHER, SELFPAY ==
[2023-03-12 13:32] VITALS: BP 125/90; PULSE 88; RESP 16; TEMP 36.6; O2SAT 99; BMI 31.3
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
[2023-03-12 14:31] LABS: Add Manual Diff / Slide Review NO; Basophils Absolute Auto 100 /uL (0-100); Basophils Percent Auto 0.6 % (0-2); Eosinophils Absolute Auto 200 /uL (0-450); Hematocrit 42.2 % (36-46); Hemoglobin 14.7 g/dL (12.0-16.0); Lymphocytes Absolute Auto 1400 /uL (1100-4500); Lymphocytes Percent Auto 16.2 % (25-40); Mean Corpuscular HGB Conc 34.8 % (30-36); Mean Corpuscular Hemoglobin 30.5 PG (26-34); Mean Corpuscular Volume 87.7 fL (80-100); Monocytes Absolute Auto 400 /uL (0-900); Neutrophils Absolute Auto 6600 /uL (1500-7000); Neutrophils Percent Auto 76.2 % (50-75); Platelet Count 226 X10^3/uL (150-400); Red Blood Cell Count 4.81 X10^6/uL (4.0-5.2); Red Cell Distribution Width 12.2 % (11.6-14.8); White Blood Cell Count 8.7 X10^3/uL (4.5-11.0)
[2023-03-12 14:44] LABS: INR 1.2 (0.9-1.3); Prothrombin Time 13.2 SECONDS (10.1-12.7)
[2023-03-12 14:46] LABS: PTT Partial Thromboplastin Tim 31 SECONDS (26-36)
[2023-03-12 14:47] LABS: Pregnancy Test Serum,Qual Negative (Negative)
[2023-03-12 14:50] LABS: Alanine Aminotransferase 24 IU/L (<35); Albumin 4.7 g/dL (3.5-5.0); Albumin Globulin Ratio 1.4 (1.0-2.8); Alkaline Phosphatase 44 U/L (38-126); Aspartate Aminotransferase 24 IU/L (14-36); BUN Creatinine Ratio 26.2 (6-22); Bilirubin Total 0.9 mg/dL (0.2-1.3); Blood Urea Nitrogen 17 mg/dL (7-17); Calcium 9.5 mg/dL (8.4-10.2); Carbon Dioxide 29 mmol/L (22-32); Chloride 102 mmol/L (98-107); Estimated Glomerular Filt Rate > 60 mL/min (>60); Ethanol (ETOH) < 10 mg/dL; Globulin 3.4 g/dL (1.7-4.1); Glucose 120 mg/dL (70-100); HEMOLYSIS 24 (0-50); Lipase 84 U/L (23-300); Potassium 3.7 mmol/L (3.4-5.1); Sodium 138 mmol/L (137-145); Total Protein 8.1 g/dL (6.3-8.2)
[2023-03-12 15:05] LABS: Bacteria Urine Moderate (10-30); Mucus Urine 1+ (Negative); RBC Urine 1-5/HPF (0-5/HPF); Squamous Epithelial Cell Urine 5-10 /HPF (0-5/HPF); WBC Urine 5-10/HPF (0-5/HPF)
[2023-03-12 15:15] VITALS: BP 120/90; PULSE 86; RESP 16; TEMP 37.1; O2SAT 99
== END 2023-03-12 15:17 | disposition home or self-care (01) ==
PROVIDERS: Emergency Provider Emergency Medicine; PCP Family Medicine
DX: S30.1XXA Contusion of abdominal wall, initial encounter (principal); S20.214A Contusion of middle front wall of thorax, initial encounter; S63.502A Unspecified sprain of left wrist, initial encounter; S66.912A Strain of unspecified muscle, fascia and tendon at wrist and hand level, left hand, initial encounter; M25.561 Pain in right knee; V89.2XXA Person injured in unspecified motor-vehicle accident, traffic, initial encounter
CPT/HCPCS: 36415; 71045; 71260; 73110; 73562; 74177; 80053; 80320; 81003; 81015; 81025; 83690; 84703; 85025; 85610; 85730; 87086; 93005; 93010; 99283; 99284; Q9967

== ENCOUNTER → 2024-08-30 08:52 | Outpatient (CLI) | payer OTHER, SELFPAY ==
[2024-08-30 09:56] LABS: Cholesterol 191 mg/dL (140-199); HDL Cholesterol 63 mg/dL (40-60); LDL Cholesterol Calculated 111 mg/dL (<100); Triglycerides 84 mg/dL (35-150)
== END ==
LOC: LAB 08:54
PROVIDERS: PCP Family Medicine; Referring Provider Family Medicine; Visit Provider Family Medicine
DX: E66.9 Obesity, unspecified (principal)
CPT/HCPCS: 36415; 80061; 83036